=== PATIENT | male | born 1960 | race Caucasian/White ===

== ENCOUNTER 2024-02-25 03:22 | Emergency (ER) | payer OTHER, SELFPAY ==
[2024-02-25] VITALS (10 sets, daily range): BP systolic 137–150; BP diastolic 61–97
[2024-02-25 04:03] LABS: % Basophils 1.1 % (0-2); % Eosinophils 2.1 % (0-6); % Immature Granulocytes 0.5 % (0-0.5); % Lymphocytes 35.5 % (20.5-51.1); % Monocytes 8.7 % (1.7-9.3); % Neutrophils 52.1 % (42.2-75.2); Absolute Basophils 0.1 10^3/uL (0-0.2); Absolute Eosinophils 0.1 10^3/uL (0-0.7); Absolute Lymphocytes 2.3 10^3/uL (1.2-3.4); Absolute Monocytes 0.6 10^3/uL (0.1-0.6); Absolute Neutrophils 3.4 10^3/uL (1.4-6.5); Hematocrit 42.3 % (39.0-52.0); Hemoglobin 14.9 g/dL (13.0-18.0); Mean Corp Hgb Conc. 35.2 g/dL (33.0-37.0); Mean Corpuscular Hgb 30.6 pg (27.0-31.0); Mean Corpuscular Volume 86.9 fL (80.0-94.0); Mean Platelet Volume 11.6 fL (7.4-10.4); Nucleated Red Blood Cells % 0 % (-); Platelet Count 167 10^3/uL (130-400); Red Blood Cell Count 4.87 10^6/uL (4.70-6.10); Red Cell Dist. Width 12.3 % (11.5-14.5); White Blood Cell Count 6.6 10^3/uL (4.8-10.8)
[2024-02-25 04:21] LABS: ALT (SGPT) 27 U/L (0-50); AST (SGOT) 22 U/L (17-59); Albumin 4.3 g/dl (3.5-5.0); Alkaline Phosphatase 73 U/L (38-126); Blood Urea Nitrogen 23 mg/dl (9-20); Calcium 9.7 mg/dl (8.4-10.2); Carbon Dioxide 26 mmol/L (22-30); Chloride 104 mmol/L (98-107); Estimated Creatinine Clearance 74 ml/min; Glucose 99 mg/dl (70-99); Sodium 136 mmol/L (135-145); Total Bilirubin 0.7 mg/dl (0.2-1.3); Total Protein 6.9 g/dl (6.3-8.2); eGFR > 60.00
[2024-02-25 04:37] LABS: Troponin I < 0.012 ng/ml
--- NOTE | 2024-02-25 04:54 | EDRN ---
awaiting for provider to see the pt
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
--- NOTE | 2024-02-25 06:07 | EDRN ---
Dr. De Leon currently at the pts bedside speaking with the pt
[2024-02-25 07:23] LABS: Troponin I < 0.012 ng/ml
[2024-02-25] MEDS: LOW STRENGTH ASPIRIN 324 MG PO (07:29)
--- NOTE | 2024-02-25 07:52 | CON.CAR ---
Addendum entered and electronically signed by Kieran Padron MD 02/25/24 13:05:
I saw and examined the patient.
The REAL ESTATE VALUER's note was reviewed and I agree with the note.
Comment: 63M with established CAD presenting with atypical CP and atypical dyspnea. EKG shows pacing and troponin normal. I offered stress test to compare with last year, but he did not want that. He would like LHC instead.
- LHC is not indicated at this time
- Continue med Rx
- Pt OK for discharge with close follow up (he was dressed and ready to go when I arrived)
Original Note:
Consultation
Consultation Request
Date/Time Consultation Requested: 02/25/24 06:30
Date/Time Consultation Performed: 02/25/24 07:45
Requesting Provider: Dr. De Leon
Performing Provider: TAMIKA [place] for Dr. Padron
Reason for Consultation: Chest pain
Medical History
-
Chief Complaint: Chest pain
History of Present Illness:
Jeffery Tatum is a 63-year-old male (known to Dr. Padron, his primary quality assurance consultant), with coronary artery disease, ischemic cardiomyopathy, hypertension, dyslipidemia, and left bundle branch block who presented to the emergency department with
a chief complaint of chest pain. His chest pain started early this morning. He describes it as 'a pain'. It is mid sternal and radiates into his anterior and posterior left lower ribs. It does not get worse with exertional activities. He
endorses associated shortness of breath. He noticed this on Wednesday when he was playing tennis he felt like he 'could not get enough air'. Prior to [place] in 2013 he endorses significant diaphoresis with shortness of breath. He reports medication
adherence. He is currently chest pain-free in the emergency department. He is not short of breath at this current moment and is not hypoxic.
Past Medical History
Past Medical History: CAD, CHF and Hypercholesterolemia
Past Surgical History: Orthopedic
Social History
Tobacco: Former Smoker
Alcohol: None
Drug: None
Family History
Family History: Early CAD (Mother with fatal [place], age 38.)
Allergies / Home Medications
Allergy/AdvReac Type Severity Reaction Status Date / Time
[facility] Allergy Unknown-patient Verified 10/01/23 08:49
denies
this
allergy
sacubitril [From Entresto] AdvReac Anxiety Verified 10/01/23 08:49
valsartan [From Entresto] AdvReac Anxiety Verified 10/01/23 08:49
�Medication �Instructions �Recorded �Confirmed �Type
nitroglycerin 0.4 mg sublingual 0.4 mg sublingual [id number] PRN 11/14/14 02/25/24 Rx
tablet Chest Pain or SBP>150 ##30
carvedilol 12.5 mg tablet 12.5 mg PO BID 10/22/21 02/25/24 History
multivitamin 1 tab PO DAILY 10/23/21 02/25/24 History
aspirin 325 mg tablet 162.5 mg PO DAILY 01/10/23 02/25/24 History
simvastatin 40 mg tablet 80 mg PO HS 09/13/23 02/25/24 History
spironolactone 25 mg tablet 12.5 mg PO DAILY 10/01/23 02/25/24 History
Review of Systems
-
History Source: Patient
All other systems: Negative unless noted
Physical Exam
Vital Signs
Temp Pulse Resp BP Pulse Ox
97 F 64 14 137/87 94
02/25/24 04:08 02/25/24 05:45 02/25/24 05:45 02/25/24 05:00 02/25/24 05:45
Lab Results
02/25/24 03:52
02/25/24 03:52
Troponin I < 0.012 ng/ml 02/25/24 06:52
Physical Exam
General: Well Developed, Well Nourished, No Apparent Distress and Comfortable
HEENT: Normocephalic, Anicteric and Moist Mucous Membranes
Respiratory: Clear and Non Labored Respirations
Cardiac: S1/S2, Regular Rhythm and Peripheral Edema (trace ankle edema)
Breast: Deferred by me
GI: Soft, Non Tender, Non Distended and Normal Bowel Sounds
Rectal: Deferred by Provider
Genito-urinary: No Costovertebral Tender
Musculoskeletal: No Clubbing and No Cyanosis
Skin: Warm and Dry
Neuro: AO x 3
Hematologic/Lymphatic: No Lymphadenopathy
Psych: Calm
Impression / Plan
-
Chest pain
-Received ASA in ER upon arrival
-Currently CP free
-EKG paced, Troponin < 0.012 x 2
-On CXR he does not appear volume overloaded await formal reading
-He is not interested in stress testing
ICM (EF 35-40%), chronic
-EF was 10-15% post [place]
-GDMT as tolerated
-BB: carvedilol 12.5mg BID
-MRA: Spironolactone 12.5mg
-ACEi/ARB: MAE with Lisinopril 10mg
-SGLT: Dapagliflozin caused lightheadedness
-Entresto: symptomatic hypotension
-ICD: Med[employer]onic (Implant 2014, Gen Change 2022), stable on most recent interrogation
-He should continue daily weights & low sodium diet
CAD
-Continue ASA, BB, & statin
-We discussed risk factor modification, Hgba1c is normal, lipid panel needs serious improvement
Dyslipidemia, goal LDL < 55, LDL 177 (12/2023), he endorses simvastatin compliance, he would benefit from high intensity statin therapy but he declined
Data Reviewed
-
EKG: Report Reviewed by me (Atrial sensed ventricular paced rhythm, rate 63)
Medical Tests (Nuc Med, Echo etc): Report Reviewed by me (Cardiac cath and echo as above)
Labs: Labs Reviewed by me
Old Records: Reviewed
--- NOTE | 2024-02-25 08:07 | EDRN ---
the pt is resting in stretcher in the lowest position side rails up x2, call garza within reach, HOB elevated, no s/s of distress, no c/o chest pain, no c/o SOB currently, VS TIBURCIOL, awaiting for cardiology to come to the pts bedside, will continue to
monitor the pt closely
--- NOTE | 2024-02-25 09:33 | EDRN ---
the pt pressed the call garza and this RN entered the pts room, the pt was standing in the doorway and stated to this RN, 'I am ready to leave, the LATEX CASTER was just here and it sounds like everything is all good', the pt is dressed and ready to leave,
this RN notified Danita Perales LATEX CASTER who stated to this RN that Dr. Padron is coming to speak with the pt
--- NOTE | 2024-02-25 09:35 | EDRN ---
the pt notified this RN that, 'I need to get going i have tennis at 11am at [facility] and i don't want to miss it', this RN assured the pt that the provider would be coming to speak to him
--- NOTE | 2024-02-25 09:38 | EDRN ---
Dr. Padron currently at the pts bedside speaking with the pt
--- NOTE | 2024-02-25 09:48 | EDRN ---
the pt walked up to the provider at the desk and stated, 'Can i leave now?', Dr. De Leon stated that he was working on printing the pts discharge instructions now, the pt then stated, 'Well i have a tennis lesson to go to and it's at 11 and i
really don't have time to wait, i am just going to head out', this RN explained to the pt that there is discharge teaching to be done as well as copies of lab results and tests that will be printed out to give to the pt to take to his follow up apt,
the pt stated to this RN, 'I don't need the discharge instructions, i spoke with the toe trimmer and we talked about the plan, so i don't need the papers', the pt then proceeded to walk out of the ER, Dr. De Leon notified
[2024-02-25 10:26] LABS: NT-proBNP 153 pg/ml
== END 2024-02-25 10:24 | disposition home or self-care (01) ==
LOC: EMR 03:22
PROVIDERS: Student in an Organized Health Care Education/Training Program; EMERGENCY PHYSICIAN Emergency Medicine; FAMILY PHYSICIAN Family Medicine
DX: R07.89 Other chest pain (principal); I25.10 Atherosclerotic heart disease of native coronary artery without angina pectoris; I11.0 Hypertensive heart disease with heart failure; I50.9 Heart failure, unspecified; E11.9 Type 2 diabetes mellitus without complications; E78.00 Pure hypercholesterolemia, unspecified; I25.2 Old myocardial infarction; F41.8 Other specified anxiety disorders; I45.10 Unspecified right bundle-branch block; I25.5 Ischemic cardiomyopathy; K21.9 Gastro-esophageal reflux disease without esophagitis; Z82.49 Family history of ischemic heart disease and other diseases of the circulatory system; Z87.891 Personal history of nicotine dependence; Z95.0 Presence of cardiac pacemaker; Z95.5 Presence of coronary angioplasty implant and graft
CPT/HCPCS: 99283; 71046; 80053; 83880; 84484; 85025; 93005

== ENCOUNTER → 2024-05-04 08:00 | Outpatient (REF) | payer OTHER, SELFPAY ==
[2024-05-04 08:56] VITALS: BMI 32.9
[2024-05-04 09:55] LABS: Hematocrit 42.5 % (39.0-52.0); Hemoglobin 15.1 g/dL (13.0-18.0); Mean Corp Hgb Conc. 35.5 g/dL (33.0-37.0); Mean Corpuscular Hgb 30.7 pg (27.0-31.0); Mean Corpuscular Volume 86.4 fL (80.0-94.0); Mean Platelet Volume 12.4 fL (7.4-10.4); Platelet Count 161 10^3/uL (130-400); Red Blood Cell Count 4.92 10^6/uL (4.70-6.10); Red Cell Dist. Width 12.4 % (11.5-14.5); White Blood Cell Count 5.5 10^3/uL (4.8-10.8)
[2024-05-04 10:25] LABS: Blood Urea Nitrogen 12 mg/dl (9-20); Calcium 9.2 mg/dl (8.4-10.2); Carbon Dioxide 25 mmol/L (22-30); Chloride 106 mmol/L (98-107); Estimated Creatinine Clearance 103 ml/min; Glucose 104 mg/dl (70-99); Potassium 4.6 mmol/L (3.5-5.1); Sodium 139 mmol/L (135-145); eGFR > 60.00
== END ==
LOC: SDSPAT 08:00
PROVIDERS: ATTENDING PHYSICIAN Surgery; FAMILY PHYSICIAN Family Medicine; OTHER PHYSICIAN Internal Medicine Cardiovascular Disease
DX: K40.90 Unilateral inguinal hernia, without obstruction or gangrene, not specified as recurrent (principal)
CPT/HCPCS: 36415; 80048; 85027

== ENCOUNTER 2025-05-27 19:29 | Observation (INO) | payer OTHER, SELFPAY ==
[2025-05-27] VITALS (10 sets, daily range): BP systolic 129–166; BP diastolic 66–100; BMI 32.3; BMI 31.3
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
[2025-05-27 16:59] LABS: Hematocrit 44.8 % (39.0-52.0); Hemoglobin 15.8 g/dL (13.0-18.0); Mean Corp Hgb Conc. 35.3 g/dL (33.0-37.0); Mean Corpuscular Volume 88.2 fL (80.0-94.0); Nucleated Red Blood Cells % 0 % (-); Platelet Count 168 10^3/uL (130-400); Red Cell Dist. Width 12.3 % (11.5-14.5)
[2025-05-27 17:11] LABS: INR 0.92; PT 12.7 Sec (11.4-14.6)
[2025-05-27 17:12] LABS: APTT 25.3 Sec (23.4-35.0)
[2025-05-27 17:14] LABS: ALT (SGPT) 20 U/L (0-50); AST (SGOT) 22 U/L (17-59); Albumin 4.7 g/dl (3.5-5.0); Alkaline Phosphatase 69 U/L (38-126); Blood Urea Nitrogen 24 mg/dl (9-20); Calcium 9.7 mg/dl (8.4-10.2); Carbon Dioxide 25 mmol/L (22-30); Chloride 108 mmol/L (98-107); Estimated Creatinine Clearance 85 ml/min; Glucose 95 mg/dl (70-99); Potassium 4.7 mmol/L (3.5-5.1); Sodium 137 mmol/L (135-145); Total Protein 7.5 g/dl (6.3-8.2); eGFR > 60.00
[2025-05-27 17:26] LABS: Troponin I < 0.012 ng/ml
[2025-05-27] MEDS: NSS 500 IV (18:08)
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
[2025-05-27] MEDS: LOW STRENGTH ASPIRIN 162.5 MG PO (18:28)
[2025-05-27] MEDS: PLAVIX 75 MG PO (18:28)
--- NOTE | 2025-05-27 19:15 | EDRN ---
Report received, patient unhooked to use the restroom, ambulated without difficulty and back in bed resting comfortably at this time.
[2025-05-27] MEDS: COREG PO (21:35)
[2025-05-28] VITALS (8 sets, daily range): BP systolic 110–136; BP diastolic 64–86; PULSE 61–62; O2SAT 97–98; BMI 31.2
--- NOTE | 2025-05-28 02:39 | PTCARENOTE ---
Arrived to unit via stretcher with dx of left arm weakness. AAOx3. No s/o pain or discomfort. NIH is 0. Call garza within reach. oriented to unit.
[2025-05-28 07:39] LABS: Hematocrit 44.7 % (39.0-52.0); Hemoglobin 15.4 g/dL (13.0-18.0); Mean Corp Hgb Conc. 34.5 g/dL (33.0-37.0); Mean Corpuscular Volume 89.8 fL (80.0-94.0); Platelet Count 152 10^3/uL (130-400); Red Cell Dist. Width 12.7 % (11.5-14.5)
[2025-05-28 08:19] LABS: Blood Urea Nitrogen 21 mg/dl (9-20); Calcium 9.3 mg/dl (8.4-10.2); Carbon Dioxide 26 mmol/L (22-30); Chloride 109 mmol/L (98-107); Estimated Creatinine Clearance 92 ml/min; Glucose 92 mg/dl (70-99); HDL Cholesterol 43 mg/dl; LDL Cholesterol, Calculated 158 mg/dl; Magnesium 2.3 mg/dl (1.6-2.3); Potassium 4.6 mmol/L (3.5-5.1); Sodium 139 mmol/L (135-145); Very Low Density Lipoprotein 63 mg/dl (0-30); eGFR > 60.00
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
[2025-05-28 08:53] LABS: Glycohemoglobin (HgbA1c) 5.4 % (4.0-5.6)
[2025-05-28] MEDS: LOW STRENGTH ASPIRIN 81 MG PO (09:07)
[2025-05-28] MEDS: COREG 12.5 MG PO ×2 (09:07→20:38)
[2025-05-28] MEDS: ALDACTONE 12.5 MG PO (09:07)
[2025-05-28] MEDS: PLAVIX 75 MG PO (09:08)
--- NOTE | 2025-05-28 09:47 | PTOTSP ---
Dysphagia Evaluation
No signs of dysphagia during clinical bedside swallowing evaluation.
No signs of dysarthria or aphasia in conversation. Will complete cognitive linguistic evaluation if appropriate pending results of MRI of Brain.
Recommend:
1. IDDSI 7 Regular, Thin Liquids
2. Medications as best tolerated
3. Strategies: Alternate sips/bites
4. Cognitive linguistic evaluation if appropriate for comprehensiveness pending results of MRI of Brain.
--- NOTE | 2025-05-28 12:56 | CM ---
Patient seen bedside w/ spouse. Initial assessment completed. Patient is a 64 y/o male past medical history of CAD, ICM, CHF, and hypertension who presents with left arm numbness/weakness.
Patient resides w/ spouse in a 3STH, 2 steps to enter. Patient is independent w/ ambulation, no device required. Independent w/ ADLs. No DME identified. Denies SNF/HC hx. OP therapy last year for shoulder repair.
Address, point of contact and insurance verified
PCP: Alexandra Worley
Pharmacy: [facility] [place]
Patient admitted as obs. [place] form verbally reviewed, copy provided, copy on chart
PT and OT eval ordered, will watch for any rehab needs
Plan: CM will cont to follow for d/c planning
[2025-05-28] MEDS: TYLENOL 650 MG PO (13:19)
--- NOTE | 2025-05-28 14:05 | PTOTSP ---
PATIENT PRESENTS WITH LEFT UE WEAKNESS/NUMBNESS AND NUMBNESS IN HIS SCALP/FACE. BRAIN MRI HAS BEEN ORDERED. PATIENT STATES THAT HE IS MOSTLY BACK TO BASELINE. PATIENT INDEPENDENT ON LEVEL SURFACES WELL ELEVATIONS REQUIRING NO FURTHER ACUTE
CARE SKILLED P.T. WILL DISCHARGE FROM P.T. SERVICES.
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
[2025-05-28] MEDS: LOVENOX 40 MG SC (17:59)
[2025-05-28] MEDS: ZETIA 10 MG PO (20:38)
[2025-05-29 03:17] VITALS: BP 126/68
[2025-05-29 06:00] VITALS: BMI 31.2
[2025-05-29] MEDS: PLAVIX 75 MG PO (07:36)
[2025-05-29] MEDS: LOW STRENGTH ASPIRIN 81 MG PO (07:36)
[2025-05-29] MEDS: COREG 12.5 MG PO (07:36)
[2025-05-29] MEDS: ALDACTONE 12.5 MG PO (07:37)
--- NOTE | 2025-05-29 11:48 | CM ---
CM reviewed chart, patient seen bedside with family, denies needs from CM at this time. PT mariza recommended no needs. CM will continue to follow for all discharge planning needs.
Plan; home no needs likely
[2025-05-29] MEDS: ATIVAN 1 MG PO (12:02)
[2025-05-29 12:09] VITALS: BP 139/81
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
[2025-05-29 13:54] LABS: Troponin I < 0.012 ng/ml
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
[2025-05-29 16:05] VITALS: BP 138/84
--- NOTE | 2025-05-29 16:51 | W.PN.UPDATE ---
Update Note
Progress Note Update
Patient could not complete MRI because he felt chest discomfort at the pacemaker site. Once he came off of the machine he felt better. Was seen by cardiology EKG and troponin for such as negative. The second set of troponin is negative will
discharge.
Per discussion with neurology we will continue with Plavix for another 19 days to make a total of 21 days. Continue Zetia. Patient to get EMG as outpatient and also follow-up with neurology
Discussed with cardiology neurology
Discussed with nursing
More than 30 minutes spent in discharge including
Final examination of the patient
Summarizing hospital stay
Instructions for continuing care to all relevant caregivers
Preparation of discharge records, prescriptions, and referral forms
Total time spent (in minutes): 35 min
--- NOTE | 2025-05-29 16:56 | W.DS.TRANS ---
DC Summary - [employer]
-
Discharge Instructions:
Sleep Apnea Risk Low
Discharge Diagnosis/Procedures Numbness of left arm and face- TIA
Coronary artery disease
History of heart failure
Hypertension
Diet 2 Gram Sodium,Restrict fluids to 64 oz
Activity As tolerated
Driving Restrictions As prior to admission
Specialty Instructions Weigh Daily
Instructions:
Stand-Alone Forms:
Changes to Home Medications: Yes
Discharge Medications:
DC Medications w/original date entered in [employer]
carvedilol 12.5 mg tablet 12.5 mg PO BID Blood Pressure 10/22/21
multivitamin 1 tab PO MOTUWE Supplement 10/23/21
spironolactone 25 mg tablet 12.5 mg PO DAILY Fluid Retention/Swelling 10/01/23
albuterol sulfate 90 mcg/actuation aerosol inhaler 1 puff inhalation Q4HPRN PRN sob 05/27/25
docusate sodium 100 mg tablet 100 mg PO DAILYPRN PRN constipation 05/27/25
ezetimibe 10 mg tablet 10 mg PO HS High cholesterol #30 tabs 05/28/25
aspirin 325 mg tablet 81 mg (0.2492 x 325 mg) PO DAILY Blood Clot Prevention/Tx #0 tabs 05/29/25
clopidogrel 75 mg tablet 75 mg PO DAILY Blood clot prevention/tx #19 tabs 05/29/25
Home Medication Changes
new
Plavix
Zetia
Pending Results: No
[2025-05-29 18:10] LABS: Troponin I < 0.012 ng/ml
== END 2025-05-29 19:20 | disposition home or self-care (01) ==
LOC: 4 WEST ACU 19:29
PROVIDERS: Physician Assistant; Physician Assistant Medical; ADMITTING PHYSICIAN Internal Medicine; ATTENDING PHYSICIAN Hospitalist; CONSULT PHYSICIAN Internal Medicine Cardiovascular Disease; EMERGENCY PHYSICIAN Student in an Organized Health Care Education/Training Program; FAMILY PHYSICIAN Family Medicine; OTHER PHYSICIAN Psychiatry & Neurology Neurology
DX: G45.9 Transient cerebral ischemic attack, unspecified (principal); I25.10 Atherosclerotic heart disease of native coronary artery without angina pectoris; I11.0 Hypertensive heart disease with heart failure; I50.22 Chronic systolic (congestive) heart failure; E11.9 Type 2 diabetes mellitus without complications; E66.9 Obesity, unspecified; E78.00 Pure hypercholesterolemia, unspecified; I25.5 Ischemic cardiomyopathy; I45.10 Unspecified right bundle-branch block; I65.23 Occlusion and stenosis of bilateral carotid arteries; N40.0 Benign prostatic hyperplasia without lower urinary tract symptoms; Z68.31 Body mass index [BMI] 31.0-31.9, adult; Z79.02 Long term (current) use of antithrombotics/antiplatelets; Z79.4 Long term (current) use of insulin; Z79.82 Long term (current) use of aspirin; Z79.899 Other long term (current) drug therapy; Z82.49 Family history of ischemic heart disease and other diseases of the circulatory system; Z87.891 Personal history of nicotine dependence; Z95.5 Presence of coronary angioplasty implant and graft; Z95.810 Presence of automatic (implantable) cardiac defibrillator
CPT/HCPCS: 70450; 70496; 70498; 80048; 80053; 80061; 82550; 83036; 83735; 84484; 85025; 85027; 85610; 85730; 92610; 93005; 96360; 97162; 97166; 99285; G0378; Q9967

== ENCOUNTER 2025-09-16 09:28 | Emergency (ER) | payer OTHER, SELFPAY ==
[2025-09-16 09:43] VITALS: BP 124/75
[2025-09-16 10:45] LABS: Hematocrit 44.8 % (39.0-52.0); Hemoglobin 15.5 g/dL (13.0-18.0); Mean Corp Hgb Conc. 34.6 g/dL (33.0-37.0); Mean Corpuscular Volume 87.3 fL (80.0-94.0); Nucleated Red Blood Cells % 0 % (-); Platelet Count 161 10^3/uL (130-400); Red Cell Dist. Width 12.3 % (11.5-14.5)
[2025-09-16 10:49] LABS: INR 0.92; PT 12.7 Sec (11.4-14.6)
[2025-09-16 10:52] LABS: ALT (SGPT) 29 U/L (0-50); AST (SGOT) 26 U/L (17-59); Albumin 4.6 g/dl (3.5-5.0); Alkaline Phosphatase 71 U/L (38-126); Blood Urea Nitrogen 21 mg/dl (9-20); Calcium 9.9 mg/dl (8.4-10.2); Carbon Dioxide 27 mmol/L (22-30); Chloride 103 mmol/L (98-107); Glucose 102 mg/dl (70-99); Potassium 4.6 mmol/L (3.5-5.1); Sodium 135 mmol/L (135-145); Total Protein 7.5 g/dl (6.3-8.2); eGFR > 60.00
[2025-09-16 10:57] VITALS: BP 148/75
[2025-09-16 11:02] VITALS: BP 130/75; BMI 31.6
[2025-09-16 11:03] LABS: Troponin I < 0.012 ng/ml
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
[2025-09-16 12:04] LABS: Lipase 62 U/L (23-300)
[2025-09-16 12:18] VITALS: BP 156/84
[2025-09-16 13:00] VITALS: BP 143/79
[2025-09-16 13:43] LABS: Troponin I < 0.012 ng/ml
== END 2025-09-16 13:59 | disposition home or self-care (01) ==
LOC: EMR 09:28
PROVIDERS: Physician Assistant; EMERGENCY PHYSICIAN Student in an Organized Health Care Education/Training Program; FAMILY PHYSICIAN Family Medicine
DX: R07.89 Other chest pain (principal); I25.10 Atherosclerotic heart disease of native coronary artery without angina pectoris; I50.9 Heart failure, unspecified; I25.2 Old myocardial infarction; E78.00 Pure hypercholesterolemia, unspecified; K21.9 Gastro-esophageal reflux disease without esophagitis; F41.9 Anxiety disorder, unspecified; F32.A Depression, unspecified; Z79.82 Long term (current) use of aspirin; Z79.02 Long term (current) use of antithrombotics/antiplatelets; Z95.810 Presence of automatic (implantable) cardiac defibrillator; Z95.5 Presence of coronary angioplasty implant and graft; Z82.49 Family history of ischemic heart disease and other diseases of the circulatory system
CPT/HCPCS: 99284; 71275; 80053; 83690; 84484; 85025; 85610; 93005; Q9967

== ENCOUNTER → 2025-10-25 12:39 | Outpatient (REF) | payer OTHER, SELFPAY ==
--- NOTE | 2025-10-25 13:50 | CARDSERVDEF ---
Echocardiogram with Definity completed after protocol screening completed. Allergies verified.
Patent IV site: __Right antecubital 20 G PC ___
IV site flushed with 0.9% NaCl pre and post administration.
Diluted bolus method utilized to enhance visualization of ventricular najera.
Total volume given: __3__ mL
Patient tolerated all procedures well without complications.
Heplock D/c ed at 1350, site clear, no redness, no edema. Pressure held, no bleeding, 2x2 applied and taped. No change in status.
== END ==
LOC: RCS 12:39
PROVIDERS: ATTENDING PHYSICIAN Internal Medicine Cardiovascular Disease; FAMILY PHYSICIAN Family Medicine
DX: I25.5 Ischemic cardiomyopathy (principal)
CPT/HCPCS: 93307; Q9957